=== PATIENT | male | born 1995 | race Hispanic/Latino ===

== ENCOUNTER 2023-05-18 23:19 | Emergency (ER) | payer OTHER ==
[~2023-05-18] VITALS: Ht 170.2 cm; Wt 88.5 kg
[2023-05-18 23:27] VITALS: BP 148/85; PULSE 81; RESP 16; O2SAT 100
[2023-05-18] MEDS ORDERED: IBUP-1493 PO (23:58)
[2023-05-18] MEDS ORDERED: CYCL-309 PO (23:58)
[2023-05-19] MEDS ORDERED: IBUPROFEN 800 MG TAB PO ONE
[2023-05-19] MEDS: CYCLOBENZAPRINE HCL 10 MG TABLET PO ONE ×2 (00:08→00:09)
== END 2023-05-19 00:24 | disposition home or self-care (01) ==
LOC: EDH 23:19
DX: M25.511 Pain in right shoulder (principal); I10 Essential (primary) hypertension
CPT/HCPCS: 73030; 73070